=== PATIENT | female | born 1980 | race Caucasian/White ===

== ENCOUNTER 2016-05-08 15:49 | Emergency (ER) | payer OTHER ==
--- NOTE | 2016-05-08 17:16 | UCPHY ---
H & P Time Seen by Provider: 05/08/16 16:27 Patient Type: New HPI/ROS: CHIEF COMPLAINT: Hand laceration HISTORY OF PRESENT ILLNESS: Patient is a 35-year-old female who presents to the emergency department after cutting her right hand on a beaker at work. Patient states the Breaker broke and cut her finger between 1st and 2nd digits in the web space. She has no numbness or tingling. She is not sure if there is a foreign body. She denies other injury. REVIEW OF SYSTEMS: Negative Past Medical/Surgical History: Includes , D&C Smoking Status: Never smoked Physical Exam: Vitals noted General Appearance: Alert and no distress. Head: Pupils equal. Normal. Respiratory: No respiratory distress. Cardiac: regular rate and rhythm. Extremities: patient is a 2 cm laceration in the web between her 1st and 2nd digit on the right hand. There is no visible deep structure laceration or injury. She has full function of her fingers and hand. Neurovascularly intact distally. No active bleeding. Skin: No rashes or lesions. Neuro: Alert. Normal mood and affect. Constitutional: Initial Vital Signs Temperature (C) 36.6 C 05/08/16 15:59 Heart Rate 73 05/08/16 15:59 Respiratory Rate 16 05/08/16 15:59 Blood Pressure 107/68 05/08/16 15:59 O2 Sat (%) 100 05/08/16 15:59 O2 Delivery Mode Room Air Allergies/Adverse Reactions: No Known Allergies Allergy (Unverified 05/08/16 15:59) Home Medications: Medication Instructions Recorded NK [No Known Home Meds] 05/08/16 Medical Decision Making Procedures: rProcedure: Laceration repair. Verbal consent was obtained from the patient. The 2 cm laceration on the right hand was anesthetized in the usual fashion. The wound was irrigated, draped and explored to its base with a gloved finger. There were no deep structures involved. No tendon injury was identified. The wound was repaired with 5 0 nylon. The wound repair was simple. The procedure was performed by myself. ED Course/Re-evaluation: I discussed the plan with the patient answered all her questions. She consented to an x-ray of her right hand for foreign body. Right hand x-ray: No fracture, dislocation or foreign body noted. The patient's wound was anesthetized, cleaned and repaired. I gave the patient wound care instructions prior to leaving. She is given warnings prior to leaving. She will return with worsening symptoms. Differential Diagnosis: Includes laceration, tendon injury, blood vessel injury, ligament injury, foreign body Departure - Departure Disposition: Home, Routine, Self-Care Clinical Impression: Laceration of hand Qualifiers: Encounter type: initial encounter Laterality: right Qualified Code(s): S61.411A - Laceration without foreign body of right hand, initial encounter Condition: Good Instructions: Laceration (ED) Additional Instructions: You need to have your sutures removed in 7-8 days. Referrals: Work Comp Referral [facility] [Outside] - As per Instructions - PQRS PQRS Measurement: 134: Depression screening and followup, PRIME MD-PHQ2 (12 years and older) Over the last 2 weeks, how often have you been bothered by any of the following problems? 1. Feeling down, depressed, or hopeless? 2. Little interest or pleasure in doing things? Patient answered no to both 1 and 2 130: Documentation of medications. Reviewed all patient medications, doses, route and frequency. 226: Do you smoke? No.
[2016-05-08] MEDS ORDERED: BACITRACIN OINTMENT 1 PACKET TP ONE (17:45)
[2016-05-08 18:03] VITALS: BP 110/69; PULSE 77; RESP 18; TEMP 98.2; O2SAT 95
== END 2016-05-08 17:59 | disposition home or self-care (01) ==
LOC: CED 15:49
PROC: 0HQFXZZ Repair Right Hand Skin, External Approach (ICD-10-PCS; principal; 2016-05-08)
DX: S61.411A Laceration without foreign body of right hand, initial encounter (principal); W26.8XXA Contact with other sharp object(s), not elsewhere classified, initial encounter; Y92.513 Shop (commercial) as the place of occurrence of the external cause
CPT/HCPCS: 73130-PO; G0463-PO